=== PATIENT | male | born 1985 | race Caucasian/White ===

== ENCOUNTER 2020-12-26 13:36 | Emergency (ER) | payer OTHER ==
[2020-12-26 15:04] LABS: HEMOGLOBIN 14.4 gm/dl (14.0-17.5); RED BLOOD COUNT 4.29 M/UL (4.20-5.50); WHITE BLOOD COUNT 8.8 K/UL (4.5-11.0)
[2020-12-26 15:26] LABS: BUN/CREATININE RATIO 9 (0-10)
[2020-12-26] MEDS ORDERED: LASIX40 MG PO (16:45)
== END 2020-12-26 17:34 | disposition home or self-care (01) ==
LOC: ER1 13:36
PROVIDERS: Physician Assistant
DX: R60.0 Localized edema (principal); F17.210 Nicotine dependence, cigarettes, uncomplicated
CPT/HCPCS: 71045; 80053; 83880; 85025; 93970; 96374; 99284; J1940

== ENCOUNTER 2021-01-04 13:08 | Emergency (ER) | payer OTHER ==
[~2021-01-04 13:08] MED LIST: LASIX40 MG PO
[2021-01-04 14:39] LABS: HEMOGLOBIN 14.5 gm/dl (14.0-17.5); RED BLOOD COUNT 4.29 M/UL (4.20-5.50); WHITE BLOOD COUNT 9.7 K/UL (4.5-11.0)
[2021-01-04 14:59] LABS: BUN/CREATININE RATIO 16 (0-10)
[2021-01-04] MEDS ORDERED: K-DUR TAB 20 M20 MEQ PO (15:59)
[2021-01-04] MEDS ORDERED: LASIX40 MG PO (15:59)
== END 2021-01-04 16:15 | disposition home or self-care (01) ==
LOC: ER1 13:08
PROVIDERS: Nurse Practitioner
DX: R60.0 Localized edema (principal); E87.6 Hypokalemia; F17.210 Nicotine dependence, cigarettes, uncomplicated; Z88.1 Allergy status to other antibiotic agents; Z79.899 Other long term (current) drug therapy
CPT/HCPCS: 80053; 83880; 85025; 99283; J1940